=== PATIENT | male | born 1970 | race African-American/Black ===

== ENCOUNTER 2019-10-29 09:20 | Emergency (ER) | payer OTHER ==
[~2019-10-29] VITALS: Ht 175.3 cm; Wt 79.4 kg
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
[2019-10-29 09:48] VITALS: BP 165/94
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
[2019-10-29] MEDS ORDERED: Methocarbamol 750mg tab ORAL ONE (10:00)
--- NOTE | 2019-10-29 10:12 | NUR ---
ED Nurse Note: pt to radiology dept.
--- NOTE | 2019-10-29 10:15 | NUR ---
ED Nurse Note: pt back from ct
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
--- NOTE | 2019-10-29 10:46 | NUR ---
ED Nurse Note: pt returning to radiology for xrays.
[2019-10-29] MEDS ORDERED: LIDODERM700 M1 TOPIC (11:13)
[2019-10-29] MEDS ORDERED: ROBAXIN-750750 MG PO (11:13)
[2019-10-29] MEDS ORDERED: IBUPROFEN600 M1 ORAL (11:13)
[2019-10-29 11:24] VITALS: BP 165/94
--- NOTE | 2019-10-29 11:25 | NUR ---
ED Nurse Note: Pt cleared by health care Provider for discharge. DC instructions/prescription was given and explained to pt and verbalized understanding of teachings. All medical devices such as ID band removed. Pt is AAO x4, ambulatory and left with all personal belongings.
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
== END 2019-10-29 11:25 | disposition home or self-care (01) ==
LOC: EMR 09:50
DX: S16.1XXA Strain of muscle, fascia and tendon at neck level, initial encounter (principal); S39.012A Strain of muscle, fascia and tendon of lower back, initial encounter; V43.52XA Car driver injured in collision with other type car in traffic accident, initial encounter; Y92.410 Unspecified street and highway as the place of occurrence of the external cause; I10 Essential (primary) hypertension; M48.03 Spinal stenosis, cervicothoracic region
CPT/HCPCS: 72020; 72125; 99284